=== PATIENT | male | born 1935 | race Caucasian/White ===

== ENCOUNTER 2018-12-29 12:42 | Emergency (ER) | payer OTHER, BC ==
[~2018-12-29] VITALS: Ht 170.2 cm; Wt 77.1 kg
[2018-12-29] MEDS ORDERED: ALDACTONE50 MG (14:57)
[2018-12-29] MEDS ORDERED: ZESTRIL5 MG (14:59)
[2018-12-29] MEDS ORDERED: CARVEDILOL3.125 MG (14:59)
[2018-12-29] MEDS ORDERED: ELIQUIS5 MG (14:59)
[2018-12-29] MEDS ORDERED: ASA-EC81 MG (15:00)
[2018-12-29] MEDS ORDERED: STERILE SALINE126 ML (15:01)
[2018-12-29] MEDS ORDERED: SYMBICORT 16010.2 GM (15:01)
[2018-12-29] MEDS ORDERED: SPIRIVA RESPIMAT4 G1 (15:01)
== END 2018-12-29 17:30 | disposition home or self-care (01) ==
LOC: ER 12:42
DX: S81.812A Laceration without foreign body, left lower leg, initial encounter (principal); W45.8XXA Other foreign body or object entering through skin, initial encounter; Y93.89 Activity, other specified; Y92.89 Other specified places as the place of occurrence of the external cause; Y99.8 Other external cause status